=== PATIENT | female | born 1970 | race Caucasian/White ===

== ENCOUNTER 2021-12-31 13:21 | Outpatient (CLI) | payer BC, SELFPAY ==
[2021-12-31 13:27] LABS: Chloride* 106 mmol/L (96-114); Sodium* 137 mmol/L (135-149)
[2021-12-31 13:30] LABS: Carbon Dioxide* 24 mmol/L (20-32); Creatinine* 0.7 mg/dL (0.5-1.5); Estimated Glomerular Filt Rate 106 ml/min; Potassium* 4.7 mmol/L (3.6-5.1)
[2021-12-31 13:31] LABS: Blood Urea Nitrogen* 7 mg/dL (5-24); Calcium* 9.5 mg/dL (8.4-10.6); Glucose* 91 mg/dL (60-115)
== END 2021-12-31 13:22 | disposition home or self-care (01) ==
PROVIDERS: PCP Family Medicine; Visit Provider Family Medicine
DX: Z01.818 Encounter for other preprocedural examination (principal)
CPT/HCPCS: 80048

== ENCOUNTER 2022-05-16 10:21 | Emergency (ER) | payer BC, SELFPAY ==
[2022-05-16 10:38] VITALS: BP 123/76; PULSE 80; RESP 16; TEMP 36.3; O2SAT 98; BMI 22.9
--- NOTE | 2022-05-16 11:15 | CRLHL7_ITS ---
For Patients: As a result of the Century Cures Act, medical imaging exams and procedure reports are released immediately into your electronic medical record. You may view this report before your referring provider. If you have questions, please contact your health care provider. Indication: Injury and pain Technique: Right wrist 3 view Comparison: None Findings: Bones: Alignment is normal. No fractures or bone lesions. Joint spaces: Unremarkable. Soft tissues: Unremarkable. Impression: No sign of acute injury in the right wrist. Dictated by Sergo Scruggs MD @ 05/16/2022 12:28:43 PM (Electronically Signed)
--- NOTE | 2022-05-16 11:54 | ED.UPPEXIN ---
HPI - Extremity Injury (Upper) General Chief Complaint: Extremity Pain/Injury, Upper Stated Complaint: Right wrist injury Time Seen by Provider: 05/16/22 11:48 History of Present Illness HPI narrative: Pt is a 52 year old woman who slipped on the ice and fell immediately prior to arrival. She injured her right wrist with no other injuries. Pt has moderate pain at the right wrist as well as moderate swelling. Pt did not hit her head or lose consciousness. Pt has no skin breakdown and no neuromuscular or vascular defects. No other injuries. Related Data Home Medications Medication Instructions Recorded Confirmed fluticasone propionate 50 2 spray intranasal QDAY 10/31/21 12/25/21 mcg/actuation nasal spray,suspension hydrocortisone 2.5 % topical cream 1 applic topical BID PRN 10/31/21 12/25/21 loratadine 10 mg tablet 10 mg PO QDAY 10/31/21 12/25/21 triamcinolone acetonide 0.1 % 1 applic topical BID 10/31/21 12/25/21 topical cream Previous Rx's Medication Instructions Recorded desogestrel 0.15 mg-ethinyl 1 tab PO QDAY #84 tabs 12/25/21 estradiol 0.03 mg tablet (Nirmala) duloxetine 60 mg capsule,delayed 60 mg PO QDAY #90 caps 01/03/22 release diazepam 5 mg tablet 5 mg PO TID PRN muscle spasm #14 01/21/22 tabs gabapentin 100 mg capsule 200 mg PO QDAY #60 caps 03/04/22 tramadol 50 mg tablet 50 - 100 mg PO Q4-6H PRN pain #20 04/03/22 tabs carisoprodol 350 mg tablet 350 mg PO TID PRN muscle pain #30 04/22/22 tabs tizanidine 4 mg tablet See Rx Instructions PO Q8H PRN 04/22/22 muscle spasticity #30 tabs oxycodone-acetaminophen 5 mg-325 1 tab PO Q6H PRN pain #12 tabs 05/01/22 mg tablet Allergies Allergy/AdvReac Type Severity Reaction Status Date / Time No Known Drug Allergies Allergy Verified 05/16/22 10:44 Review of Systems Status of ROS: Reports: 10 or more systems reviewed and unremarkable except as noted in History and below [facility] Medical History Thrombosed hemorrhoids Surgical History Status post breast augmentation Status post nasal septoplasty (10/17/08) Status post operation on paranasal sinus Status post shoulder surgery Status post tonsillectomy (10/17/08) Social History Smoking Status: Former smoker How often do you have a drink containing alcohol: never How often do you have six or more drinks on one occasion: Never AUDIT-C Alcohol total score: 0 Non-prescribed substance use: denies use Exam Narrative: Exam Narrative: EXAM GENERAL: Patient appears comfortable and well. EYES: No scleral icterus. LYMPH: No supraclavicular or cervical lymphadenopathy. SKIN: Visible skin seen during exam normal or with benign process only. EXT: No dependent lower extremity pedal edema. Right wrist is normal to inspection and palpation. HEART: Regular rate and rhythm with no murmurs, rubs, or gallops. LUNGS: Clear to auscultation bilaterally with no crackles or wheezes. ABD: Soft, non tender, non distended. PSYCH: Good eye contact, speech is not pressured. Const: Vital Signs, click to edit/add: Vital Signs - 24 hr 05/16/22 10:38 Temperature 97.4 F L Pulse Rate [Pulse Oximeter] 80 Respiratory Rate 16 Blood Pressure [Le ft Upper Arm] 123/76 Pulse Oximetry 98 Oxygen Delivery Me thod Room Air Course Course Hospital Course: Pt seen and examined. X ray of right wrist negative for acute fracture on my and radiology review. Vital Signs Vital signs: Initial Vital Signs Temperature 97.4 F L 05/16/22 10:38 Temperature Source Temporal Artery Scan 05/16/22 10:38 Pulse Rate 80 05/16/22 10:38 Pulse Rhythm 05/16/22 10:38 Respiratory Rate 16 05/16/22 10:38 Blood Pressure 123/76 05/16/22 10:38 Blood Pressure Mean 91 05/16/22 10:38 Pulse Oximetry 98 05/16/22 10:38 Oxygen Delivery Method 05/16/22 10:38 Vital Signs Temperature 97.4 F L 05/16/22 10:38 Pulse Rate 80 05/16/22 10:38 Respiratory Rate 16 05/16/22 10:38 Blood Pressure 123/76 05/16/22 10:38 Pulse Oximetry 98 05/16/22 10:38 Oxygen Delivery Method 05/16/22 10:38 Temperature 97.4 F L 05/16/22 10:38 Pulse Rate 80 05/16/22 10:38 Respiratory Rate 16 05/16/22 10:38 Blood Pressure 123/76 05/16/22 10:38 Pulse Oximetry 98 05/16/22 10:38 Oxygen Delivery Method 05/16/22 10:38 MDM - Extremity Injury (Upper) MDM Narrative Medical decision making narrative: Pt presents with injury to right wrist. Normal exam. Normal xrays. Pt treated as sprain with rest, ice, tylenol and motrin. Follow up with PCP as needed. Differential Diagnosis Differential diagnosis: Likely sprain and strain of wrist, fracture of wrist, Colles' fracture and fracture of hand Discharge Plan Discharge Clinical Impression: Right wrist sprain Patient Disposition: Home, Self-Care Condition: Stable Instructions: Wrist Sprain (ED) Additional Instructions: Tylenol Motrin Ice Activity Level: No Restrictions Discharge Diet: Regular Prescriptions: No Action desogestrel-ethinyl estradiol [Truongeber] 0.15-0.03 mg tablet 1 tab PO QDAY Qty: 84 3RF fluticasone propionate 50 mcg/actuation spray,suspension 2 spray intranasal QDAY Rx Instructions: administer into each nostril triamcinolone acetonide 0.1 % cream 1 applic topical BID hydrocortisone 2.5 % cream 1 applic topical BID PRN loratadine 10 mg tablet 10 mg PO QDAY duloxetine 60 mg capsule,delayed release(DR/EC) 60 mg PO QDAY Qty: 90 3RF diazepam 5 mg tablet 5 mg PO TID PRN (Reason: muscle spasm) Qty: 14 1RF Rx Instructions: Must last one month. Use only for severe neck or shoulder pain. gabapentin 100 mg capsule 200 mg PO QDAY Qty: 60 5RF tramadol 50 mg tablet 50 - 100 mg PO Q4-6H PRN (Reason: pain) Qty: 20 0RF Rx Instructions: Max 400MG/DAY. Must last one month tizanidine 4 mg tablet See Rx Instructions PO Q8H PRN (Reason: muscle spasticity) Qty: 30 1RF Rx Instructions: 2-4 mg orally every 8 hours PRN; carisoprodol 350 mg tablet 350 mg PO TID PRN (Reason: muscle pain) Qty: 30 1RF Rx Instructions: Must last one month. oxycodone-acetaminophen 5-325 mg tablet 1 tab PO Q6H PRN (Reason: pain) Qty: 12 0RF Rx Instructions: Must last one month. Follow Up/Referrals: Rick Hughes MD [Primary Care Provider] - Stand Alone Forms: [employer] Info Instructions
[2022-05-16 12:35] VITALS: PULSE 78; O2SAT 99
== END 2022-05-16 12:41 | disposition home or self-care (01) ==
PROVIDERS: Emergency Provider Internal Medicine; PCP Family Medicine; Referring Provider Family Medicine; Visit Provider Family Medicine
DX: S63.501A Unspecified sprain of right wrist, initial encounter (principal); W00.0XXA Fall on same level due to ice and snow, initial encounter
CPT/HCPCS: 73110; 99283

== ENCOUNTER 2022-07-16 16:01 | Emergency (ER) | payer BC, SELFPAY ==
[2022-07-16 16:19] VITALS: BP 117/68; PULSE 91; RESP 16; TEMP 36.3; O2SAT 98; BMI 24.9
--- NOTE | 2022-07-16 17:21 | ED.WOUNDLAC ---
HPI - Wound/Laceration General Chief Complaint: Laceration/Wound Stated Complaint: Middle finger R hand laceration Time Seen by Provider: 07/16/22 17:03 History of Present Illness HPI narrative: This 52-year-old female comes in with a laceration to the palmar aspect of the distal portion of her right middle finger. She was picking up a glass platter that had a sharp edge to it and cut the distal portion of her right middle finger. She states that her tetanus status is up-to-date. She does not report any other injury. Related Data Home Medications Medication Instructions Recorded Confirmed hydrocortisone 2.5 % topical cream 1 applic topical BID PRN 10/31/21 12/25/21 loratadine 10 mg tablet 10 mg PO QDAY 10/31/21 12/25/21 Previous Rx's Medication Instructions Recorded desogestrel 0.15 mg-ethinyl 1 tab PO QDAY #84 tabs 12/25/21 estradiol 0.03 mg tablet (Nirmala) duloxetine 60 mg capsule,delayed 60 mg PO QDAY #90 caps 01/03/22 release carisoprodol 350 mg tablet 350 mg PO TID PRN muscle pain #30 06/12/22 tabs fluticasone propionate 50 2 spray intranasal QDAY #16 grams 06/14/22 mcg/actuation nasal spray,suspension tramadol 50 mg tablet See Rx Instructions PO BID PRN 06/18/22 pain #20 tabs gabapentin 100 mg capsule 200 mg PO QDAY #180 caps 07/10/22 tizanidine 4 mg tablet See Rx Instructions PO Q8H PRN 07/15/22 muscle spasticity #30 tabs methocarbamol 500 mg tablet 500 mg PO TID PRN muscle spasm #30 07/16/22 tabs oxycodone-acetaminophen 5 mg-325 See Rx Instructions PO Q6H PRN 07/16/22 mg tablet pain #14 tabs Allergies Allergy/AdvReac Type Severity Reaction Status Date / Time No Known Drug Allergies Allergy Verified 05/16/22 10:44 Review of Systems Status of ROS: Reports: 10 or more systems reviewed and unremarkable except as noted in History and below Narrative: Constitutional: No fevers, no weight gain or loss. Eyes: No discharge. No vision changes. HENT: No congestion, no sore throat, no ear pain. Cardiovascular: No chest pain, no palpitations. Respiratory: No shortness of breath, no wheezes, no cough. Gastrointestinal: No abdominal pain, no vomiting, no diarrhea. Genitourinary: No dysuria, no hematuria. Musculoskeletal: Normal range of motion. Laceration to the palmar aspect of the right middle finger. Skin: No rashes, no pruritis. Neurological: No dizziness, weakness, sensory change, speech change. Endo/Heme/Allergies: No bruising or bleeding. No polydipsia. Pysch: no suicidality, no anxiety, no insomnia. All other systems reviewed and are negative. PFSH PFS Medical History Thrombosed hemorrhoids Surgical History Status post breast augmentation Status post nasal septoplasty (10/17/08) Status post operation on paranasal sinus Status post shoulder surgery Status post tonsillectomy (10/17/08) Social History Smoking Status: Former smoker How often do you have a drink containing alcohol: never How often do you have six or more drinks on one occasion: Never AUDIT-C Alcohol total score: 0 Non-prescribed substance use: denies use Exam Narrative: Exam Narrative: Constitutional: Well-developed, well-nourished, no acute distress. HEENT: Normocephalic, atraumatic. Neck: Normal range of motion. Nontender. Supple. Heart: Intact distal pulses. Lungs: No chest discomfort. No wheezes, rhonchi, or rales. Abdomen: Nontender. Back: Normal range of motion. Extremities: Normal range of motion. Flap-type laceration of the distal portion of the palmar aspect of the right middle finger. There is some persistent bleeding. The length of the wound in total is about 2 cm. Skin: Intact. No rash. Warm. No erythema or pallor. Neurologic: No altered sensation. No weakness. Alert and oriented. Psychiatric: No suicidality. No anxiety or depression. No insomnia. Nursing notes and vitals signs are reviewed. Const: Vital Signs, click to edit/add: Vital Signs - 24 hr 07/16/22 16:19 Temperature 97.3 F L Pulse Rate [Left P ulse Oximeter] 91 Respiratory Rate 16 Blood Pressure [Le ft Upper Arm] 117/68 Pulse Oximetry 98 Oxygen Delivery Me thod Room Air Course Vital Signs Vital signs: Initial Vital Signs Temperature 97.3 F L 07/16/22 16:19 Temperature Source Temporal Artery Scan 07/16/22 16:19 Pulse Rate 91 07/16/22 16:19 Pulse Rhythm Regular 07/16/22 16:19 Respiratory Rate 16 07/16/22 16:19 Blood Pressure 117/68 07/16/22 16:19 Blood Pressure Mean 84 07/16/22 16:19 Blood Pressure Position Sitting 07/16/22 16:19 Pulse Oximetry 98 07/16/22 16:19 Oxygen Delivery Method Room Air 07/16/22 16:19 Vital Signs Temperature 97.3 F L 07/16/22 16:19 Pulse Rate 91 07/16/22 16:19 Respiratory Rate 16 07/16/22 16:19 Blood Pressure 117/68 07/16/22 16:19 Pulse Oximetry 98 07/16/22 16:19 Oxygen Delivery Method Room Air 07/16/22 16:19 Temperature 97.3 F L 07/16/22 16:19 Pulse Rate 91 07/16/22 16:19 Respiratory Rate 16 07/16/22 16:19 Blood Pressure 117/68 07/16/22 16:19 Pulse Oximetry 98 07/16/22 16:19 Oxygen Delivery Method Room Air 07/16/22 16:19 MDM - Wound/Laceration MDM Narrative Medical decision making narrative: I discussed repair options with the patient who prefers Dermabond repair. After applying direct pressure to this wound for 10-15 minutes the wound did immediately began to bleed again when the pressure was released. I did then apply a finger tourniquet to exsanguinate the finger. I evaluated the wound to its base. There is no sign of foreign object. The wound edges were approximated nicely and Dermabond was applied to seal the wound. Two Band-Aids were placed and there is no evidence of ongoing bleeding. The tourniquet was removed and instructions regarding wound care were given to the patient. Discharge Plan Discharge Clinical Impression: Laceration Patient Disposition: Home, Self-Care Condition: Improved Additional Instructions: Keep wound clean and dry. Keep Band-Aids applied for the next day and then change thereafter as needed. Follow up with MD or return if worsening. Prescriptions: No Action desogestrel-ethinyl estradiol [Juleber] 0.15-0.03 mg tablet 1 tab PO QDAY Qty: 84 3RF hydrocortisone 2.5 % cream 1 applic topical BID PRN loratadine 10 mg tablet 10 mg PO QDAY duloxetine 60 mg capsule,delayed release(DR/EC) 60 mg PO QDAY Qty: 90 3RF carisoprodol 350 mg tablet 350 mg PO TID PRN (Reason: muscle pain) Qty: 30 0RF fluticasone propionate 50 mcg/actuation spray,suspension 2 spray intranasal QDAY Qty: 16 5RF Rx Instructions: administer 2 sprays into each nostril tramadol 50 mg tablet See Rx Instructions PO BID PRN (Reason: pain) Qty: 20 0RF Rx Instructions: 1-2 tabs orally twice a day PRN; gabapentin 100 mg capsule 200 mg PO QDAY Qty: 180 1RF tizanidine 4 mg tablet See Rx Instructions PO Q8H PRN (Reason: muscle spasticity) Qty: 30 1RF Rx Instructions: 2-4 mg orally every 8 hours PRN; methocarbamol 500 mg tablet 500 mg PO TID PRN (Reason: muscle spasm) Qty: 30 3RF oxycodone-acetaminophen 5-325 mg tablet See Rx Instructions PO Q6H PRN (Reason: pain) Qty: 14 0RF Rx Instructions: 1-2 tabs orally every 6 hours PRN; Follow Up/Referrals: Rick Hughes MD [Primary Care Provider] - Stand Alone Forms: [employer] Info Instructions
== END 2022-07-16 18:18 | disposition home or self-care (01) ==
LOC: ED 17:38
PROVIDERS: Emergency Provider Emergency Medicine Emergency Medical Services; PCP Family Medicine
DX: S61.212A Laceration without foreign body of right middle finger without damage to nail, initial encounter (principal); W25.XXXA Contact with sharp glass, initial encounter
CPT/HCPCS: 12001; 99283; 99284